=== PATIENT | female | born 1945 | race Caucasian/White ===

== ENCOUNTER 2016-07-15 14:00 | Emergency (ER) | payer OTHER ==
[~2016-07-15] VITALS: Ht 177.8 cm; Wt 131.8 kg
[~2016-07-15 14:00] MED LIST: ADVAIR 250/501 DISK; ADVAIR 250/501 DISK IH; ADVAIR 500/501 DISK IH; ADVAIR HFA120 INHALA IH; ALAVERT10 MG PO; ALBUTEROL SULF8.5 GM IH; ASPIR-LOW81 MG PO; ASPIRIN325 MG; ASPIRIN325 MG PO; Aspirin E.C. PO; CEFTIN500 MG PO; CLEOCIN300 MG PO; COUGH DROPS1 EACH MM; Claritin,Alavart PO; DILAUDID2 MG PO; DOCUSATE SODIU100 MG PO; DUONEB 2.5-0.5 M3 ML IH; ECOTRIN325 MG PO; ERYTHROMYC1 APPLICAT LEFT EYE; FUROSEMIDE40 MG PO; GABAPENTIN100 MG PO; Glucophage PO; HYDROCODON-ACE1 EAC7 PO; KEFLEX500 MG PO; KENALOG,ARISTOC80 G1 TP; KETOCONAZOLE60 GM TP; LANTUS 10100 UNITS/ SC; LANTUS 3 M100 UNITS1 SC; LASIX20 MG PO; LEVEMIR FL100 UNIT/1 SC; LEVEMIR100 UNIT/2 SC; LISINOPRIL5 MG PO; LITE COAT ASPI325 M1 PO; LOPRESSOR25 MG PO; LOSARTAN POTASS25 MG PO; LOVENOX40 MG/0.4 SC; Levaquin PO; Lopressor PO; METFORMIN HCL1000 M1 PO; METFORMIN HCL500 MG PO; METOLAZONE5 MG PO; METOPROLOL TART25 MG PO; MYRBETRIQ25 MG PO; NEURONTIN100 MG PO; NICODERM CQ1 EAC1 TD; NORCO 7.5/321 TABLET PO; NOVOLOG 10100 UNITS/; NOVOLOG 10100 UNITS/ SC; NOVOLOG PE100 UNITS/ SC; NovoLOG, HumaLOG SC; PERCOCET 5/31 TABLET PO; POTASSIUM CHLO20 ME1 PO; PRAVACHOL10 MG PO; PRAVACHOL20 MG PO; PRAVACHOL40 MG PO; PRAVASTATIN SOD40 MG PO; PREDNISONE10 MG PO; PREDNISONE20 MG PO; PROAIR HFA8.5 GM IH; Pravachol PO; ROXICODONE5 MG PO; SPIRIVA1 INHALATI IH; SPIRONOLACTONE25 MG PO; SYMBICORT60 INHALAT IH; TOPROL XL6.25 MG PO; ULTRAM50 MG PO; XANAX; XANAX0.25 MG PO; Xanax PO; ZITHROMAX250 MG PO; ZOFRAN4 MG PO; Zestril,Prinivil PO; predniSONE PO
[2016-07-15 15:19] LABS: HEMATOCRIT 40.1 % (36.0-46.0); MCH 27.9 PG (29.0-34.0); MCHC 32.4 G/DL (30.0-36.0); MCV 86.1 FL (83-99); PLATELET COUNT 264 K/uL (156-360); RBC DIS.WIDTH-SD 43.3 % (39-53); RED BLOOD COUNT 4.66 M/uL (3.80-5.20); WHITE BLOOD COUNT 9.6 K/uL (4.1-10.2)
[2016-07-15 15:36] LABS: CHLORIDE 94 mEq/L (99-109); SODIUM 137 mEq/L (136-147)
[2016-07-15 15:38] LABS: GLUCOSE 131 mg/dL (70-99)
[2016-07-15 15:39] LABS: ANION GAP 15 MEQ/L (2-14)
[2016-07-15 15:42] LABS: GFR ESTIMATE (CALCULATED) 59 mL/min/
[2016-07-15 15:43] LABS: UREA NITROGEN (BUN) 22 mg/dL (9-23)
[2016-07-15 16:36] LABS: D-DIMER ELISA 0.46 mg/L FEU (< 0.57)
[2016-07-15] MEDS ORDERED: DUONEB 2.5-0.5 M3 ML AEROSOL (17:06)
[2016-07-15] MEDS ORDERED: PREDNISONE20 MG PO (17:06)
[2016-07-15] MEDS ORDERED: K-DUR20 MEQ PO (17:12)
[2016-07-15 17:45] VITALS: BP 120/59
== END 2016-07-15 18:09 | disposition home or self-care (01) ==
LOC: EME 14:00 → RME 14:00
DX: J44.1 Chronic obstructive pulmonary disease with (acute) exacerbation (principal); E87.6 Hypokalemia; F17.200 Nicotine dependence, unspecified, uncomplicated; E11.9 Type 2 diabetes mellitus without complications; E78.5 Hyperlipidemia, unspecified; I25.2 Old myocardial infarction; Z95.1 Presence of aortocoronary bypass graft; Z88.2 Allergy status to sulfonamides
CPT/HCPCS: 71020; 80048; 85027; 85379; 93005; 94640; 99281; 99284

== ENCOUNTER 2016-10-10 04:35 | Inpatient (IN) | payer OTHER ==
[~2016-10-10] VITALS: Ht 177.8 cm; Wt 142.5 kg
[~2016-10-10 04:35] MED LIST changes: +DUONEB 2.5-0.5 M3 ML AEROSOL; +K-DUR20 MEQ PO
[2016-10-10 05:15] LABS: HEMATOCRIT 36.8 % (36.0-46.0); MCH 26.7 PG (29.0-34.0); MCHC 31.8 G/DL (30.0-36.0); MCV 83.8 FL (83-99); MEAN PLAT.VOLUME 9.2 uM^3 (9.5-12.4); PLATELET COUNT 275 K/uL (156-360); RBC DIS.WIDTH-CV 15.1 % (11.8-14.6); RBC DIS.WIDTH-SD 45.9 % (39-53); RED BLOOD COUNT 4.39 M/uL (3.80-5.20); WHITE BLOOD COUNT 7.8 K/uL (4.1-10.2)
[2016-10-10 05:33] LABS: CHLORIDE 103 mEq/L (99-109); POTASSIUM 4.5 mEq/L (3.7-5.4); SODIUM 140 mEq/L (136-147)
[2016-10-10 05:34] LABS: GLUCOSE 92 mg/dL (70-99)
[2016-10-10 05:36] LABS: ANION GAP 8 MEQ/L (2-14)
[2016-10-10 05:38] LABS: GFR ESTIMATE (CALCULATED) > 59 mL/min/
[2016-10-10 05:39] LABS: UREA NITROGEN (BUN) 22 mg/dL (9-23)
[2016-10-10 05:52] LABS: TROP-I INTERPRETATION NEGATIVE; TROPONIN-I 0.03 ng/mL (0.0-0.30)
[2016-10-10] MEDS ORDERED: LOSARTAN POTASS25 MG PO (07:58)
[2016-10-10] MEDS ORDERED: METOLAZONE5 MG PO (07:59)
[2016-10-10] MEDS ORDERED: TRESIBA FL100 UNIT/1 SC (08:01)
[2016-10-10 08:18] LABS: POINT-OF-CARE METER ID UU13113702
[2016-10-10 09:38] VITALS: BP 116/59
[2016-10-10 11:59] VITALS: BP 131/65
[2016-10-10 12:39] LABS: POINT-OF-CARE METER ID UU14162513
[2016-10-10 13:28] LABS: METH RESISTANT S AUREUS PCR POSITIVE (NEGATIVE)
[2016-10-10 13:35] LABS: PROBE CHECK PASS
[2016-10-10 16:54] VITALS: BP 132/75
[2016-10-10 20:00] VITALS: BP 118/57
[2016-10-10 23:57] VITALS: BP 125/60
[2016-10-11] VITALS (7 sets, daily range): BP systolic 120–141; BP diastolic 58–84
[2016-10-11 06:19] LABS: HEMATOCRIT 35.2 % (36.0-46.0); MCH 26.5 PG (29.0-34.0); MCHC 32.1 G/DL (30.0-36.0); MCV 82.4 FL (83-99); MEAN PLAT.VOLUME 9.6 uM^3 (9.5-12.4); PLATELET COUNT 262 K/uL (156-360); RBC DIS.WIDTH-CV 15.4 % (11.8-14.6); RBC DIS.WIDTH-SD 46.2 % (39-53); RED BLOOD COUNT 4.27 M/uL (3.80-5.20)
[2016-10-11 06:46] LABS: ANION GAP 10 MEQ/L (2-14); CHLORIDE 96 MEQ/L (99-109); GFR ESTIMATE (CALCULATED) > 59 mL/min/; GLUCOSE 223 mg/dL (70-99); POTASSIUM 3.2 MEQ/L (3.7-5.4); SAMPLE HEMOLYSIS CHECK 0; SAMPLE ICTERIC CHECK 0; SAMPLE LIPEMIA CHECK 0; SODIUM 135 MEQ/L (136-147); UREA NITROGEN (BUN) 22 mg/dL (9-23)
[2016-10-11 08:53] LABS: POINT-OF-CARE METER ID UU14162513
[2016-10-11 13:08] LABS: MAGNESIUM 1.8 mg/dl (1.3-2.7)
[2016-10-11 17:16] LABS: POINT-OF-CARE METER ID UU13113831
[2016-10-11 21:45] LABS: POINT-OF-CARE METER ID UU13113831
[2016-10-12 04:20] VITALS: BP 101/58
[2016-10-12 07:37] LABS: ANION GAP 7 MEQ/L (2-14); CHLORIDE 98 MEQ/L (99-109); GFR ESTIMATE (CALCULATED) 59 mL/min/; GLUCOSE 144 mg/dL (70-99); SAMPLE HEMOLYSIS CHECK 0; SAMPLE ICTERIC CHECK 0; SAMPLE LIPEMIA CHECK 0; SODIUM 136 MEQ/L (136-147); UREA NITROGEN (BUN) 29 mg/dL (9-23)
[2016-10-12 07:41] LABS: POTASSIUM 4.2 MEQ/L (3.7-5.4)
[2016-10-12 08:31] LABS: POINT-OF-CARE METER ID UU14162513
[2016-10-12 09:13] VITALS: BP 110/53
[2016-10-12 11:34] VITALS: BP 132/61
[2016-10-12 12:55] LABS: POINT-OF-CARE METER ID UU13113700
[2016-10-12 17:30] VITALS: BP 134/60
[2016-10-12 17:55] LABS: POINT-OF-CARE METER ID UU14162508
[2016-10-12 20:57] VITALS: BP 111/56
[2016-10-12 21:18] LABS: POINT-OF-CARE METER ID UU14162508
[2016-10-13] VITALS (7 sets, daily range): BP systolic 128–167; BP diastolic 69–82
[2016-10-13 06:23] LABS: POINT-OF-CARE METER ID UU14162508
[2016-10-13 07:05] LABS: EOSINOPHIL (%) 0.1 % (0-5); IMMATURE GRANULOCYTE (%) 0.6 % (0.0-0.7); IMMATURE GRANULOCYTE COUNT 0.1 K/uL; INSTRUMENT ABS NEUTROPHIL CT 6.8 K/uL; LYMPHOCYTE COUNT 1.1 K/uL (1.0-2.8); MCH 26.7 PG (29.0-34.0); MCHC 31.5 G/DL (30.0-36.0); MCV 84.6 FL (83-99); MEAN PLAT.VOLUME 9.3 uM^3 (9.5-12.4); MONOCYTE (%) 10.1 % (3-12); MONOCYTE COUNT 0.9 K/uL (0-0.8); NEUTROPHIL (%) 76.5 % (45-76); NEUTROPHIL COUNT 6.8 K/uL (1.8-6.4); PLATELET COUNT 282 K/uL (156-360); RBC DIS.WIDTH-CV 15.6 % (11.8-14.6); RBC DIS.WIDTH-SD 47.4 % (39-53); RED BLOOD COUNT 4.61 M/uL (3.80-5.20); WHITE BLOOD COUNT 8.9 K/uL (4.1-10.2)
[2016-10-13 07:34] LABS: ALKALINE PHOSPHATASE 50 IU/L (3-129); ANION GAP 9 MEQ/L (2-14); CHLORIDE 97 MEQ/L (99-109); GFR ESTIMATE (CALCULATED) 59 mL/min/; POTASSIUM 3.5 MEQ/L (3.7-5.4); SAMPLE HEMOLYSIS CHECK 0; SAMPLE ICTERIC CHECK 0; SAMPLE LIPEMIA CHECK 0; SODIUM 138 MEQ/L (136-147); TOTAL BILIRUBIN 0.6 MG/DL (0.0-1.0); UREA NITROGEN (BUN) 27 mg/dL (9-23)
[2016-10-13 07:35] LABS: GLUCOSE 79 mg/dL (70-99)
[2016-10-13 09:42] LABS: TROP-I INTERPRETATION POSITIVE; TROPONIN-I 1.28 ng/mL (0.0-0.30)
[2016-10-13 11:35] LABS: POINT-OF-CARE METER ID UU14162508
[2016-10-14 03:29] VITALS: BP 125/67
[2016-10-14 08:00] VITALS: BP 152/69
[2016-10-14 09:50] LABS: EOSINOPHIL (%) 0.1 % (0-5); HEMATOCRIT 40.1 % (36.0-46.0); IMMATURE GRANULOCYTE (%) 0.6 % (0.0-0.7); IMMATURE GRANULOCYTE COUNT 0.1 K/uL; INSTRUMENT ABS NEUTROPHIL CT 7.4 K/uL; LYMPHOCYTE COUNT 1.3 K/uL (1.0-2.8); MCH 26.4 PG (29.0-34.0); MCHC 31.2 G/DL (30.0-36.0); MCV 84.6 FL (83-99); MEAN PLAT.VOLUME 9.5 uM^3 (9.5-12.4); MONOCYTE (%) 12.1 % (3-12); MONOCYTE COUNT 1.2 K/uL (0-0.8); NEUTROPHIL (%) 74.5 % (45-76); NEUTROPHIL COUNT 7.4 K/uL (1.8-6.4); PLATELET COUNT 256 K/uL (156-360); RBC DIS.WIDTH-CV 15.5 % (11.8-14.6); RBC DIS.WIDTH-SD 47.7 % (39-53); RED BLOOD COUNT 4.74 M/uL (3.80-5.20)
[2016-10-14 10:16] LABS: TROP-I INTERPRETATION POSITIVE; TROPONIN-I 0.84 ng/mL (0.0-0.30)
[2016-10-14 10:18] LABS: ALKALINE PHOSPHATASE 56 IU/L (3-129); ANION GAP 9 MEQ/L (2-14); CHLORIDE 95 MEQ/L (99-109); GFR ESTIMATE (CALCULATED) > 59 mL/min/; POTASSIUM 3.8 MEQ/L (3.7-5.4); SAMPLE HEMOLYSIS CHECK 0; SAMPLE ICTERIC CHECK 0; SAMPLE LIPEMIA CHECK 0; SODIUM 138 MEQ/L (136-147); TOTAL BILIRUBIN 0.7 MG/DL (0.0-1.0); UREA NITROGEN (BUN) 24 mg/dL (9-23)
[2016-10-14 10:20] LABS: GLUCOSE 197 mg/dL (70-99)
[2016-10-14 11:45] LABS: POINT-OF-CARE METER ID UU14162508
[2016-10-14 12:00] VITALS: BP 147/89
[2016-10-14 16:00] VITALS: BP 123/67
[2016-10-15 00:08] VITALS: BP 149/70
[2016-10-15 04:05] VITALS: BP 157/78
[2016-10-15 07:05] LABS: EOSINOPHIL (%) 0.2 % (0-5); HEMATOCRIT 40.2 % (36.0-46.0); IMMATURE GRANULOCYTE (%) 0.8 % (0.0-0.7); IMMATURE GRANULOCYTE COUNT 0.1 K/uL; INSTRUMENT ABS NEUTROPHIL CT 7.5 K/uL; LYMPHOCYTE COUNT 1.5 K/uL (1.0-2.8); MCH 26.5 PG (29.0-34.0); MCHC 31.6 G/DL (30.0-36.0); MCV 83.8 FL (83-99); MEAN PLAT.VOLUME 9.7 uM^3 (9.5-12.4); MONOCYTE COUNT 1.1 K/uL (0-0.8); NEUTROPHIL COUNT 7.5 K/uL (1.8-6.4); PLATELET COUNT 261 K/uL (156-360); RBC DIS.WIDTH-CV 15.3 % (11.8-14.6); RBC DIS.WIDTH-SD 46.8 % (39-53); WHITE BLOOD COUNT 10.2 K/uL (4.1-10.2)
[2016-10-15 08:00] VITALS: BP 115/63
[2016-10-15 08:18] LABS: ALKALINE PHOSPHATASE 55 IU/L (3-129); ANION GAP 10 MEQ/L (2-14); CHLORIDE 96 MEQ/L (99-109); GFR ESTIMATE (CALCULATED) > 59 mL/min/; POTASSIUM 4.2 MEQ/L (3.7-5.4); SAMPLE HEMOLYSIS CHECK 0; SAMPLE ICTERIC CHECK 0; SAMPLE LIPEMIA CHECK 0; SODIUM 140 MEQ/L (136-147); TOTAL BILIRUBIN 0.6 MG/DL (0.0-1.0); UREA NITROGEN (BUN) 25 mg/dL (9-23)
[2016-10-15 08:19] LABS: GLUCOSE 83 mg/dL (70-99)
[2016-10-15 08:57] LABS: POINT-OF-CARE METER ID UU14162508
[2016-10-15 12:00] VITALS: BP 139/83
[2016-10-15 12:17] LABS: POINT-OF-CARE METER ID UU14162508
[2016-10-15 16:00] VITALS: BP 113/65
[2016-10-15 16:17] LABS: POINT-OF-CARE METER ID UU14162508
[2016-10-15 22:33] VITALS: BP 120/60
[2016-10-15 22:53] LABS: POINT-OF-CARE METER ID UU14162508
[2016-10-16 03:55] VITALS: BP 122/67
[2016-10-16 05:50] LABS: EOSINOPHIL (%) 0.1 % (0-5); HEMATOCRIT 39.2 % (36.0-46.0); IMMATURE GRANULOCYTE (%) 0.9 % (0.0-0.7); IMMATURE GRANULOCYTE COUNT 0.1 K/uL; INSTRUMENT ABS NEUTROPHIL CT 8.1 K/uL; LYMPHOCYTE COUNT 1.7 K/uL (1.0-2.8); MCH 26.1 PG (29.0-34.0); MCHC 31.1 G/DL (30.0-36.0); MCV 83.9 FL (83-99); MONOCYTE (%) 8.5 % (3-12); MONOCYTE COUNT 0.9 K/uL (0-0.8); NEUTROPHIL (%) 74.6 % (45-76); NEUTROPHIL COUNT 8.1 K/uL (1.8-6.4); PLATELET COUNT 267 K/uL (156-360); RBC DIS.WIDTH-CV 15.6 % (11.8-14.6); RBC DIS.WIDTH-SD 47.7 % (39-53); RED BLOOD COUNT 4.67 M/uL (3.80-5.20); WHITE BLOOD COUNT 10.9 K/uL (4.1-10.2)
[2016-10-16 06:11] LABS: ALKALINE PHOSPHATASE 55 IU/L (3-129); ANION GAP 10 MEQ/L (2-14); CHLORIDE 96 MEQ/L (99-109); GFR ESTIMATE (CALCULATED) > 59 mL/min/; GLUCOSE 97 mg/dL (70-99); POTASSIUM 3.9 MEQ/L (3.7-5.4); SAMPLE HEMOLYSIS CHECK 0; SAMPLE ICTERIC CHECK 0; SAMPLE LIPEMIA CHECK 0; SODIUM 137 MEQ/L (136-147); TOTAL BILIRUBIN 0.6 MG/DL (0.0-1.0); UREA NITROGEN (BUN) 26 mg/dL (9-23)
[2016-10-16 08:10] VITALS: BP 118/72
[2016-10-16 11:30] VITALS: BP 147/81
[2016-10-16 16:25] LABS: POINT-OF-CARE METER ID UU13113696
[2016-10-16 21:37] VITALS: BP 133/60
[2016-10-16 22:01] LABS: POINT-OF-CARE METER ID UU14174216
[2016-10-16 23:16] VITALS: BP 124/67
[2016-10-17 04:30] VITALS: BP 125/66
[2016-10-17 07:53] LABS: POINT-OF-CARE METER ID UU14174216
[2016-10-17 09:12] VITALS: BP 128/73
[2016-10-17 11:35] VITALS: BP 122/69
[2016-10-17 11:42] LABS: POINT-OF-CARE METER ID UU14174216
[2016-10-17 16:37] VITALS: BP 125/70
[2016-10-17 16:51] LABS: POINT-OF-CARE METER ID UU14174216
[2016-10-17 19:20] VITALS: BP 117/58
[2016-10-17 23:00] VITALS: BP 118/57
[2016-10-18 03:30] VITALS: BP 116/70
[2016-10-18 07:35] VITALS: BP 101/50
[2016-10-18] MEDS ORDERED: K-DUR20 MEQ PO (07:36)
[2016-10-18] MEDS ORDERED: BRILINTA90 MG PO (07:36)
[2016-10-18] MEDS ORDERED: ASPIR-LOW81 MG PO (07:36)
[2016-10-18] MEDS ORDERED: SPIRIVA RESPIMAT4 GM IH (07:36)
[2016-10-18] MEDS ORDERED: PREDNISONE10 MG PO (07:36)
[2016-10-18 11:28] VITALS: BP 116/56
== END 2016-10-18 12:17 | disposition home health service (06) | DRG 166 ==
LOC: EME 04:35 → EDOF 07:37 → 5WEST 07:37 → 2EAST 10-11 10:39 → 4EAST 10-11 10:39 → 5EAST 10-11 10:39 → 5WEST 10-11 10:39 → 5EAST 10-11 10:39 → 5WEST 10-12 06:31 → 2EAST 10-12 17:22 → 4EAST 10-16 21:36
PROVIDERS: Emergency Medicine; Hospitalist; Internal Medicine; Internal Medicine Cardiovascular Disease; Nurse Practitioner Adult Health; Pediatrics
DX: J44.1 Chronic obstructive pulmonary disease with (acute) exacerbation (principal); J44.0 Chronic obstructive pulmonary disease with (acute) lower respiratory infection; I21.4 Non-ST elevation (NSTEMI) myocardial infarction; L03.115 Cellulitis of right lower limb; I11.0 Hypertensive heart disease with heart failure; I50.20 Unspecified systolic (congestive) heart failure; E11.622 Type 2 diabetes mellitus with other skin ulcer; Z68.42 Body mass index [BMI] 45.0-49.9, adult; I25.2 Old myocardial infarction; E66.9 Obesity, unspecified; I25.10 Atherosclerotic heart disease of native coronary artery without angina pectoris; J20.9 Acute bronchitis, unspecified; L97.909 Non-pressure chronic ulcer of unspecified part of unspecified lower leg with unspecified severity; J45.909 Unspecified asthma, uncomplicated; E78.5 Hyperlipidemia, unspecified; I87.8 Other specified disorders of veins; L30.4 Erythema intertrigo; S40.211A Abrasion of right shoulder, initial encounter; X58.XXXA Exposure to other specified factors, initial encounter; Z95.1 Presence of aortocoronary bypass graft; L03.116 Cellulitis of left lower limb; F41.9 Anxiety disorder, unspecified; F17.210 Nicotine dependence, cigarettes, uncomplicated; R09.02 Hypoxemia; E87.6 Hypokalemia; I25.810 Atherosclerosis of coronary artery bypass graft(s) without angina pectoris
CPT/HCPCS: 71010; 80048; 80053; 82948; 83735; 84100; 84484; 85025; 85027; 85347; 85730; 87081; 87641; 93005; 94640; 94640 76; 94644; 94760; 94799; 99202; 99281; 99284; C1725; C1769; C1874; C1887; G0378; J0456; J1644; J1815; J2250; J2930; J3010; J7030; J7512

== ENCOUNTER 2016-12-27 17:34 | Inpatient (IN) | payer OTHER ==
[~2016-12-27] VITALS: Ht 177.8 cm; Wt 149.0 kg
[~2016-12-27 17:34] MED LIST changes: +BRILINTA90 MG PO; +SPIRIVA RESPIMAT4 GM IH; +TRESIBA FL100 UNIT/1 SC
[2016-12-27 18:34] LABS: ADD MIUA? YES; BILIRUBIN NEGATIVE; BLOOD NEGATIVE; COLOR YELLOW ((YELLOW)); GLUCOSE (STRIP) NEGATIVE; KETONES NEGATIVE; LEUKOCYTES SMALL; NITRITE NEGATIVE; PROTEIN (STRIP) NEGATIVE; SPECIFIC GRAVITY 1.013 (1.000-1.030); UROBILINOGEN 0.2 MG/DL (0.2-1.0)
[2016-12-27 18:42] LABS: BACTERIA RARE /HPF; EPITHELIAL CELLS 4+ /HPF; HYALINE CASTS 0-5 /LPF; MUCUS TRACE /LPF; RED BLOOD CELLS 0-5 /HPF (0-5); UCUL ADDED? NO; WHITE BLOOD CELLS 0-5 /HPF (0-5)
[2016-12-27 19:06] LABS: BASOPHIL COUNT 0.1 K/uL (0-0.1); EOSINOPHIL (%) 0 % (0-5); IMMATURE GRANULOCYTE (%) 1.2 % (0.0-0.7); IMMATURE GRANULOCYTE COUNT 0.4 K/uL; INSTRUMENT ABS NEUTROPHIL CT 30.8 K/uL; LYMPHOCYTE COUNT 0.6 K/uL (1.0-2.8); MEAN PLAT.VOLUME 9.3 uM^3 (9.5-12.4); MONOCYTE (%) 4.6 % (3-12); MONOCYTE COUNT 1.5 K/uL (0-0.8); NEUTROPHIL (%) 92.1 % (45-76); NEUTROPHIL COUNT 30.8 K/uL (1.8-6.4); PLATELET COUNT 308 K/uL (156-360)
[2016-12-27 19:17] LABS: CHLORIDE 101 mEq/L (99-109); SODIUM 139 mEq/L (136-147)
[2016-12-27 19:19] LABS: GLUCOSE 156 mg/dL (70-99)
[2016-12-27 19:20] LABS: ANION GAP 13 MEQ/L (2-14)
[2016-12-27 19:21] LABS: TOTAL BILIRUBIN 0.8 mg/dL (0.0-1.0)
[2016-12-27 19:22] LABS: ALKALINE PHOSPHATASE 67 IU/L (3-129)
[2016-12-27 19:23] LABS: GFR ESTIMATE (CALCULATED) 47 mL/min/
[2016-12-27 19:24] LABS: UREA NITROGEN (BUN) 18 mg/dL (9-23)
[2016-12-27 19:32] LABS: TROP-I INTERPRETATION POSITIVE
[2016-12-27 19:33] LABS: HEMATOCRIT 35.2 % (36.0-46.0); MCH 27.3 PG (29.0-34.0); MCHC 32.4 G/DL (30.0-36.0); MCV 84.2 FL (83-99); RBC DIS.WIDTH-CV 15.3 % (11.8-14.6); RBC DIS.WIDTH-SD 47.1 % (39-53); RED BLOOD COUNT 4.18 M/uL (3.80-5.20)
[2016-12-27 19:52] LABS: TROPONIN-I 1.26 ng/mL (0.0-0.30)
[2016-12-27] MEDS ORDERED: DUONEB 2.5-0.5 M3 ML AEROSOL (22:56)
[2016-12-27] MEDS ORDERED: SPIRIVA RESPIMAT4 GM IH (22:57)
[2016-12-27] MEDS ORDERED: K-DUR20 MEQ PO (23:00)
[2016-12-27] MEDS ORDERED: TRESIBA FL200 UNIT/1 SC (23:05)
[2016-12-27] MEDS ORDERED: ELIQUIS5 MG PO (23:06)
[2016-12-28 01:15] VITALS: BP 118/57
[2016-12-28 01:19] LABS: INTER. NORMALIZED RATIO 1.4; PROTHROMBIN TIME 14.6 (9.2-11.2); PTT 34.3 (25-32)
[2016-12-28 01:29] LABS: TROP-I INTERPRETATION POSITIVE
[2016-12-28 02:04] LABS: METH RESISTANT S AUREUS PCR POSITIVE (NEGATIVE); PROBE CHECK PASS
[2016-12-28 04:59] VITALS: BP 132/54
[2016-12-28 07:54] LABS: POINT-OF-CARE METER ID UU14174216
[2016-12-28 08:00] VITALS: BP 126/59
[2016-12-28 09:11] LABS: BASOPHIL COUNT 0.1 K/uL (0-0.1); EOSINOPHIL (%) 0 % (0-5); IMMATURE GRANULOCYTE COUNT 0.3 K/uL; INSTRUMENT ABS NEUTROPHIL CT 28.7 K/uL; LYMPHOCYTE COUNT 0.7 K/uL (1.0-2.8); MEAN PLAT.VOLUME 9.3 uM^3 (9.5-12.4); MONOCYTE (%) 2.1 % (3-12); MONOCYTE COUNT 0.7 K/uL (0-0.8); NEUTROPHIL (%) 94.3 % (45-76); NEUTROPHIL COUNT 28.7 K/uL (1.8-6.4); PLATELET COUNT 301 K/uL (156-360)
[2016-12-28 09:15] LABS: ANION GAP 11 MEQ/L (2-14); CHLORIDE 100 MEQ/L (99-109); GFR ESTIMATE (CALCULATED) 52 mL/min/; GLUCOSE 167 mg/dL (70-99); POTASSIUM 3.1 MEQ/L (3.7-5.4); SAMPLE HEMOLYSIS CHECK 0; SAMPLE ICTERIC CHECK 0; SAMPLE LIPEMIA CHECK 0; SODIUM 134 MEQ/L (136-147); UREA NITROGEN (BUN) 21 mg/dL (9-23)
[2016-12-28 09:16] LABS: HEMATOCRIT 35.2 % (36.0-46.0); MCH 27.1 PG (29.0-34.0); MCHC 31.5 G/DL (30.0-36.0); MCV 85.9 FL (83-99); RBC DIS.WIDTH-CV 15.5 % (11.8-14.6); RBC DIS.WIDTH-SD 49.1 % (39-53); WHITE BLOOD COUNT 30.5 K/uL (4.1-10.2)
[2016-12-28 09:24] LABS: TROP-I INTERPRETATION POSITIVE; TROPONIN-I 3.08 ng/mL (0.0-0.30)
[2016-12-28 11:33] LABS: POINT-OF-CARE METER ID UU14174216
[2016-12-28 12:03] VITALS: BP 133/63
[2016-12-28 16:15] LABS: POINT-OF-CARE METER ID UU14174216
[2016-12-28 16:42] VITALS: BP 109/68
[2016-12-28 17:22] LABS: BASE EXCESS 0.9 mEq/L (-3 to +3); BICARBONATE 23.4 mEq/L (22-26); COMMENTS - BLOOD GASES A+C+; DEVICE NC; METHEMOGLOBIN 1.6 % (0-1.5); O2 FLOW 2 L/MIN; PCO2 30 mm Hg (35-45); PO2 73 mm Hg (80-100); SITE RR
[2016-12-28 19:59] VITALS: BP 129/67
[2016-12-29] VITALS (7 sets, daily range): BP systolic 98–135; BP diastolic 56–66
[2016-12-29 07:57] LABS: POINT-OF-CARE METER ID UU14174216
[2016-12-30 03:22] VITALS: BP 110/49
[2016-12-30 03:34] VITALS: BP 100/49
[2016-12-30 04:20] LABS: BASOPHIL COUNT 0.1 K/uL (0-0.1); EOSINOPHIL (%) 1.3 % (0-5); EOSINOPHIL COUNT 0.2 K/uL (0-0.3); HEMATOCRIT 29.5 % (36.0-46.0); IMMATURE GRANULOCYTE (%) 0.8 % (0.0-0.7); IMMATURE GRANULOCYTE COUNT 0.1 K/uL; INSTRUMENT ABS NEUTROPHIL CT 10.2 K/uL; LYMPHOCYTE COUNT 0.9 K/uL (1.0-2.8); MCH 26.6 PG (29.0-34.0); MCHC 31.5 G/DL (30.0-36.0); MCV 84.5 FL (83-99); MEAN PLAT.VOLUME 9.9 uM^3 (9.5-12.4); MONOCYTE (%) 6.1 % (3-12); MONOCYTE COUNT 0.7 K/uL (0-0.8); NEUTROPHIL (%) 83.9 % (45-76); NEUTROPHIL COUNT 10.2 K/uL (1.8-6.4); PLATELET COUNT 230 K/uL (156-360); RBC DIS.WIDTH-CV 15.6 % (11.8-14.6); RBC DIS.WIDTH-SD 48.1 % (39-53); RED BLOOD COUNT 3.49 M/uL (3.80-5.20); WHITE BLOOD COUNT 12.1 K/uL (4.1-10.2)
[2016-12-30 04:31] LABS: CHLORIDE 103 mEq/L (99-109); SODIUM 137 mEq/L (136-147)
[2016-12-30 04:34] LABS: GLUCOSE 142 mg/dL (70-99)
[2016-12-30 04:35] LABS: ANION GAP 9 MEQ/L (2-14)
[2016-12-30 04:36] LABS: TOTAL BILIRUBIN 0.7 mg/dL (0.0-1.0)
[2016-12-30 04:37] LABS: ALKALINE PHOSPHATASE 71 IU/L (3-129); GFR ESTIMATE (CALCULATED) 58 mL/min/
[2016-12-30 04:38] LABS: UREA NITROGEN (BUN) 19 mg/dL (9-23)
[2016-12-30 08:10] LABS: POINT-OF-CARE METER ID UU14174216
[2016-12-30 08:30] VITALS: BP 131/63
[2016-12-30 11:39] LABS: POINT-OF-CARE METER ID UU13113781
[2016-12-30 11:41] VITALS: BP 114/56
[2016-12-30 16:41] LABS: POINT-OF-CARE METER ID UU13113781
[2016-12-30 17:30] VITALS: BP 133/55
[2016-12-30 20:55] LABS: POINT-OF-CARE METER ID UU14174216
[2016-12-30 21:46] VITALS: BP 128/70
[2016-12-31 00:39] VITALS: BP 126/65
[2016-12-31 04:22] VITALS: BP 117/76
[2016-12-31 05:27] LABS: BASOPHIL COUNT 0.1 K/uL (0-0.1); EOSINOPHIL (%) 1.3 % (0-5); EOSINOPHIL COUNT 0.2 K/uL (0-0.3); IMMATURE GRANULOCYTE (%) 0.9 % (0.0-0.7); IMMATURE GRANULOCYTE COUNT 0.1 K/uL; INSTRUMENT ABS NEUTROPHIL CT 11.8 K/uL; LYMPHOCYTE COUNT 0.9 K/uL (1.0-2.8); MCH 27.1 PG (29.0-34.0); MCHC 32.7 G/DL (30.0-36.0); MCV 83.1 FL (83-99); MEAN PLAT.VOLUME 9.9 uM^3 (9.5-12.4); NEUTROPHIL (%) 84.1 % (45-76); NEUTROPHIL COUNT 11.8 K/uL (1.8-6.4); PLATELET COUNT 245 K/uL (156-360); RBC DIS.WIDTH-CV 15.4 % (11.8-14.6); RBC DIS.WIDTH-SD 46.7 % (39-53); RED BLOOD COUNT 3.61 M/uL (3.80-5.20)
[2016-12-31 05:57] LABS: ALKALINE PHOSPHATASE 141 IU/L (3-129); ANION GAP 10 MEQ/L (2-14); CHLORIDE 101 MEQ/L (99-109); GFR ESTIMATE (CALCULATED) > 59 mL/min/; GLUCOSE 129 mg/dL (70-99); POTASSIUM 3.2 MEQ/L (3.7-5.4); SAMPLE HEMOLYSIS CHECK 0; SAMPLE ICTERIC CHECK 0; SAMPLE LIPEMIA CHECK 0; SODIUM 136 MEQ/L (136-147); TOTAL BILIRUBIN 0.9 MG/DL (0.0-1.0); UREA NITROGEN (BUN) 16 mg/dL (9-23)
[2016-12-31 08:37] VITALS: BP 140/63
[2016-12-31 12:29] LABS: GFR ESTIMATE (CALCULATED) > 59 mL/min/; VANCOMYCIN, TROUGH 16.3 MCG/ML (10-20)
[2016-12-31 16:36] VITALS: BP 130/60
[2016-12-31 19:34] VITALS: BP 131/65
[2016-12-31 23:03] VITALS: BP 117/59
[2017-01-01 04:30] VITALS: BP 149/64
[2017-01-01 07:01] LABS: ALKALINE PHOSPHATASE 137 IU/L (3-129); ANION GAP 10 MEQ/L (2-14); CHLORIDE 101 MEQ/L (99-109); GFR ESTIMATE (CALCULATED) > 59 mL/min/; GLUCOSE 128 mg/dL (70-99); POTASSIUM 3.5 MEQ/L (3.7-5.4); SAMPLE HEMOLYSIS CHECK 0; SAMPLE ICTERIC CHECK 0; SAMPLE LIPEMIA CHECK 0; SODIUM 137 MEQ/L (136-147); TOTAL BILIRUBIN 0.8 MG/DL (0.0-1.0); UREA NITROGEN (BUN) 12 mg/dL (9-23)
[2017-01-01 09:00] VITALS: BP 142/58
[2017-01-01 11:37] VITALS: BP 126/64
[2017-01-01 12:43] LABS: POINT-OF-CARE USER ID NUTSLF44
[2017-01-01 12:51] LABS: POINT-OF-CARE METER ID UU14174216
[2017-01-01 14:50] LABS: BASOPHIL COUNT 0.1 K/uL (0-0.1); EOSINOPHIL (%) 2.6 % (0-5); EOSINOPHIL COUNT 0.4 K/uL (0-0.3); HEMATOCRIT 31.8 % (36.0-46.0); IMMATURE GRANULOCYTE COUNT 0.3 K/uL; INSTRUMENT ABS NEUTROPHIL CT 11.9 K/uL; LYMPHOCYTE COUNT 1.5 K/uL (1.0-2.8); MCH 27.5 PG (29.0-34.0); MCHC 32.7 G/DL (30.0-36.0); MCV 84.1 FL (83-99); MEAN PLAT.VOLUME 9.8 uM^3 (9.5-12.4); MONOCYTE COUNT 1.1 K/uL (0-0.8); NEUTROPHIL (%) 78.6 % (45-76); NEUTROPHIL COUNT 11.9 K/uL (1.8-6.4); PLATELET COUNT 292 K/uL (156-360); RBC DIS.WIDTH-CV 15.4 % (11.8-14.6); RBC DIS.WIDTH-SD 46.9 % (39-53); RED BLOOD COUNT 3.78 M/uL (3.80-5.20); WHITE BLOOD COUNT 15.2 K/uL (4.1-10.2)
[2017-01-01 16:40] VITALS: BP 108/62
[2017-01-01 16:56] LABS: POINT-OF-CARE METER ID UU14174216
[2017-01-01 19:54] VITALS: BP 126/60
[2017-01-01 20:54] LABS: POINT-OF-CARE METER ID UU14174216
[2017-01-01 23:40] VITALS: BP 128/58
[2017-01-02 04:40] VITALS: BP 125/60
[2017-01-02 06:00] LABS: BASOPHIL COUNT 0.1 K/uL (0-0.1); EOSINOPHIL COUNT 0.6 K/uL (0-0.3); HEMATOCRIT 31.5 % (36.0-46.0); IMMATURE GRANULOCYTE COUNT 0.5 K/uL; INSTRUMENT ABS NEUTROPHIL CT 12.1 K/uL; LYMPHOCYTE COUNT 1.7 K/uL (1.0-2.8); MCH 27.8 PG (29.0-34.0); MCHC 32.7 G/DL (30.0-36.0); MCV 84.9 FL (83-99); MEAN PLAT.VOLUME 9.9 uM^3 (9.5-12.4); MONOCYTE (%) 6.2 % (3-12); NEUTROPHIL COUNT 12.1 K/uL (1.8-6.4); PLATELET COUNT 305 K/uL (156-360); RBC DIS.WIDTH-CV 15.5 % (11.8-14.6); RBC DIS.WIDTH-SD 47.8 % (39-53); RED BLOOD COUNT 3.71 M/uL (3.80-5.20); WHITE BLOOD COUNT 15.9 K/uL (4.1-10.2)
[2017-01-02 06:22] LABS: ANION GAP 9 MEQ/L (2-14); CHLORIDE 100 MEQ/L (99-109); GFR ESTIMATE (CALCULATED) > 59 mL/min/; GLUCOSE 165 mg/dL (70-99); POTASSIUM 3.6 MEQ/L (3.7-5.4); SAMPLE HEMOLYSIS CHECK 0; SAMPLE ICTERIC CHECK 0; SAMPLE LIPEMIA CHECK 0; SODIUM 140 MEQ/L (136-147); UREA NITROGEN (BUN) 12 mg/dL (9-23)
[2017-01-02 09:10] VITALS: BP 110/57
[2017-01-02 12:09] VITALS: BP 116/59
[2017-01-02 16:48] VITALS: BP 152/66
[2017-01-02 19:35] VITALS: BP 114/56
[2017-01-03] VITALS (8 sets, daily range): BP systolic 101–126; BP diastolic 53–66
[2017-01-03 06:03] LABS: BASOPHIL COUNT 0.1 K/uL (0-0.1); EOSINOPHIL COUNT 0.6 K/uL (0-0.3); HEMATOCRIT 29.7 % (36.0-46.0); IMMATURE GRANULOCYTE COUNT 0.7 K/uL; INSTRUMENT ABS NEUTROPHIL CT 10.7 K/uL; LYMPHOCYTE COUNT 1.6 K/uL (1.0-2.8); MCH 28.2 PG (29.0-34.0); MCV 85.3 FL (83-99); MONOCYTE (%) 5.6 % (3-12); MONOCYTE COUNT 0.8 K/uL (0-0.8); NEUTROPHIL COUNT 10.7 K/uL (1.8-6.4); PLATELET COUNT 305 K/uL (156-360); RBC DIS.WIDTH-CV 15.6 % (11.8-14.6); RBC DIS.WIDTH-SD 47.8 % (39-53); RED BLOOD COUNT 3.48 M/uL (3.80-5.20); WHITE BLOOD COUNT 14.5 K/uL (4.1-10.2)
[2017-01-03 06:29] LABS: ALKALINE PHOSPHATASE 114 IU/L (3-129); ANION GAP 11 MEQ/L (2-14); CHLORIDE 103 MEQ/L (99-109); GFR ESTIMATE (CALCULATED) > 59 mL/min/; GLUCOSE 142 mg/dL (70-99); POTASSIUM 3.9 MEQ/L (3.7-5.4); SAMPLE HEMOLYSIS CHECK 0; SAMPLE ICTERIC CHECK 0; SAMPLE LIPEMIA CHECK 0; SODIUM 141 MEQ/L (136-147); UREA NITROGEN (BUN) 11 mg/dL (9-23)
[2017-01-03 06:30] LABS: TOTAL BILIRUBIN 0.5 MG/DL (0.0-1.0)
[2017-01-03 22:35] LABS: POINT-OF-CARE METER ID UU14174216
[2017-01-04 03:11] VITALS: BP 112/57
[2017-01-04 07:38] VITALS: BP 110/56
[2017-01-04 12:34] VITALS: BP 136/63
[2017-01-04] MEDS ORDERED: KEFLEX500 MG PO (16:29)
[2017-01-04 16:44] LABS: POINT-OF-CARE METER ID UU14174216
== END 2017-01-04 18:21 | disposition home or self-care (01) | DRG 872 ==
LOC: EME 17:34 → EDOF 23:04 → 4EAST 23:04
PROVIDERS: Emergency Medicine; Hospitalist; Nurse Practitioner Adult Health; Pediatrics; Physician Assistant Medical
DX: A41.9 Sepsis, unspecified organism (principal); I95.9 Hypotension, unspecified; I42.0 Dilated cardiomyopathy; I11.0 Hypertensive heart disease with heart failure; I50.9 Heart failure, unspecified; I48.1 Persistent atrial fibrillation; L03.116 Cellulitis of left lower limb; R65.20 Severe sepsis without septic shock; R79.89 Other specified abnormal findings of blood chemistry; E11.9 Type 2 diabetes mellitus without complications; I10 Essential (primary) hypertension; B95.4 Other streptococcus as the cause of diseases classified elsewhere; E66.01 Morbid (severe) obesity due to excess calories; Z68.42 Body mass index [BMI] 45.0-49.9, adult; I87.2 Venous insufficiency (chronic) (peripheral); E78.5 Hyperlipidemia, unspecified; E87.6 Hypokalemia; F17.210 Nicotine dependence, cigarettes, uncomplicated; G47.00 Insomnia, unspecified; I25.10 Atherosclerotic heart disease of native coronary artery without angina pectoris; I25.5 Ischemic cardiomyopathy; J44.9 Chronic obstructive pulmonary disease, unspecified; N39.3 Stress incontinence (female) (male); Z86.14 Personal history of Methicillin resistant Staphylococcus aureus infection; Z95.1 Presence of aortocoronary bypass graft; J45.909 Unspecified asthma, uncomplicated
CPT/HCPCS: 36600; 70450; 71010; 80048; 80053; 80202; 81003; 82140; 82565; 82803; 82948; 83605; 84484; 85025; 85027; 85610; 85730; 87040; 87070; 87075; 87077; 87147; 87186; 87205; 87641; 93005; 93798; 94640; 94640 76; 94799; 99202; 99281; 99285; A6260; J0690; J0696; J1815; J2543; J3370; J7040; J7050

== ENCOUNTER 2017-03-03 00:29 | Emergency (ER) | payer OTHER ==
[~2017-03-03] VITALS: Ht 177.8 cm; Wt 140.9 kg
[~2017-03-03 00:29] MED LIST changes: +ELIQUIS5 MG PO; +TRESIBA FL200 UNIT/1 SC
[2017-03-03] MEDS ORDERED: ATARAX,VISTARIL25 MG PO (03:24)
[2017-03-03 03:35] VITALS: BP 122/60
== END 2017-03-03 03:57 | disposition home or self-care (01) ==
LOC: EME 00:29
DX: E11.622 Type 2 diabetes mellitus with other skin ulcer (principal); L97.921 Non-pressure chronic ulcer of unspecified part of left lower leg limited to breakdown of skin; L97.911 Non-pressure chronic ulcer of unspecified part of right lower leg limited to breakdown of skin; I87.8 Other specified disorders of veins; L29.9 Pruritus, unspecified; I11.0 Hypertensive heart disease with heart failure; I50.9 Heart failure, unspecified; J44.9 Chronic obstructive pulmonary disease, unspecified; E78.5 Hyperlipidemia, unspecified; I25.2 Old myocardial infarction; Z95.1 Presence of aortocoronary bypass graft; F17.200 Nicotine dependence, unspecified, uncomplicated
CPT/HCPCS: 99281; 99284; Q0177

== ENCOUNTER 2017-07-29 00:48 | Emergency (ER) | payer OTHER ==
[~2017-07-29] VITALS: Ht 177.8 cm; Wt 136.3 kg
[~2017-07-29 00:48] MED LIST changes: +ATARAX,VISTARIL25 MG PO
[2017-07-29 02:34] LABS: HEMATOCRIT 36.4 % (36.0-46.0); HEMOGLOBIN 11.5 G/DL (11.9-15.5); MCH 25.6 PG (29.0-34.0); MCHC 31.6 G/DL (30.0-36.0); MCV 81.1 FL (83-99); PLATELET COUNT 264 K/uL (156-360); RBC DIS.WIDTH-SD 49.9 % (39-53); RED BLOOD COUNT 4.49 M/uL (3.80-5.20); WHITE BLOOD COUNT 10.3 K/uL (4.1-10.2)
[2017-07-29 02:42] LABS: ALBUMIN 3.9 g/dL (3.2-4.8); CHLORIDE 100 mEq/L (99-109); SODIUM 137 mEq/L (136-147)
[2017-07-29 02:45] LABS: GLUCOSE 145 mg/dL (70-99)
[2017-07-29 02:47] LABS: TOTAL BILIRUBIN 0.6 mg/dL (0.0-1.0)
[2017-07-29 02:48] LABS: ALKALINE PHOSPHATASE 78 IU/L (3-129); CREATININE 1.1 mg/dL (0.6-1.3); GFR ESTIMATE (CALCULATED) 52 mL/min/
[2017-07-29 02:49] LABS: UREA NITROGEN (BUN) 16 mg/dL (9-23)
[2017-07-29 02:50] LABS: AST (GOT) 10 IU/L (2-34)
[2017-07-29 02:51] LABS: ALT (GPT) 6 IU/L (3-49)
[2017-07-29 02:52] LABS: LIPASE 21 U/L (1.0-51.0)
[2017-07-29] MEDS ORDERED: ATARAX,VISTARIL25 MG PO (03:24)
[2017-07-29] MEDS ORDERED: PERCOCET 5/31 TABLET PO (03:24)
[2017-07-29 04:10] VITALS: BP 135/70
== END 2017-07-29 04:10 | disposition home or self-care (01) ==
LOC: EME 00:48
PROVIDERS: Emergency Medicine
DX: L03.116 Cellulitis of left lower limb (principal); E87.6 Hypokalemia; Z88.8 Allergy status to other drugs, medicaments and biological substances; Z88.2 Allergy status to sulfonamides
CPT/HCPCS: 80053; 83690; 85027; Q0177

== ENCOUNTER 2017-08-04 16:01 | Emergency (ER) | payer OTHER ==
[~2017-08-04] VITALS: Ht 177.8 cm; Wt 148.6 kg
[2017-08-04 20:50] VITALS: BP 122/74
== END 2017-08-04 20:51 | disposition home or self-care (01) ==
LOC: EME 16:01
DX: L97.929 Non-pressure chronic ulcer of unspecified part of left lower leg with unspecified severity (principal); Z48.00 Encounter for change or removal of nonsurgical wound dressing; I11.0 Hypertensive heart disease with heart failure; I50.9 Heart failure, unspecified; E78.5 Hyperlipidemia, unspecified; E11.9 Type 2 diabetes mellitus without complications; J44.9 Chronic obstructive pulmonary disease, unspecified; I25.2 Old myocardial infarction; F17.200 Nicotine dependence, unspecified, uncomplicated; Z79.01 Long term (current) use of anticoagulants; Z79.4 Long term (current) use of insulin; Z87.2 Personal history of diseases of the skin and subcutaneous tissue; Z95.1 Presence of aortocoronary bypass graft; Z88.2 Allergy status to sulfonamides; Z88.1 Allergy status to other antibiotic agents
CPT/HCPCS: 99281; 99284

== ENCOUNTER 2017-10-10 21:55 | Emergency (ER) | payer OTHER ==
[~2017-10-10] VITALS: Ht 177.8 cm; Wt 146.5 kg
[2017-10-11] MEDS ORDERED: ULTRACET1 TABLET PO (00:45)
[2017-10-11 01:19] VITALS: BP 135/75
[2017-10-11] MEDS ORDERED: MOTRIN800 MG PO (11:35)
== END 2017-10-11 01:20 | disposition home or self-care (01) ==
LOC: EME 21:55
DX: S70.01XA Contusion of right hip, initial encounter (principal); S70.11XA Contusion of right thigh, initial encounter; S86.911A Strain of unspecified muscle(s) and tendon(s) at lower leg level, right leg, initial encounter; S80.11XA Contusion of right lower leg, initial encounter; W06.XXXA Fall from bed, initial encounter; E66.01 Morbid (severe) obesity due to excess calories; Z68.42 Body mass index [BMI] 45.0-49.9, adult; Z88.2 Allergy status to sulfonamides; Z88.1 Allergy status to other antibiotic agents
CPT/HCPCS: 73502; 73552; 73590; 99281; 99283; J3010

== ENCOUNTER 2017-10-11 08:48 | Emergency (ER) | payer OTHER ==
[~2017-10-11] VITALS: Ht 167.6 cm; Wt 144.5 kg
[~2017-10-11 08:48] MED LIST changes: +ULTRACET1 TABLET PO
[2017-10-11] MEDS ORDERED: MOTRIN800 MG PO (11:35)
[2017-10-11 11:51] VITALS: BP 93/45
== END 2017-10-11 12:11 | disposition home or self-care (01) ==
LOC: EME 08:48
DX: S43.402A Unspecified sprain of left shoulder joint, initial encounter (principal); W05.0XXA Fall from non-moving wheelchair, initial encounter; E78.5 Hyperlipidemia, unspecified; E11.9 Type 2 diabetes mellitus without complications; Z79.4 Long term (current) use of insulin; I25.2 Old myocardial infarction; I11.0 Hypertensive heart disease with heart failure; I50.9 Heart failure, unspecified; J44.9 Chronic obstructive pulmonary disease, unspecified; F17.200 Nicotine dependence, unspecified, uncomplicated; Z95.1 Presence of aortocoronary bypass graft; Z88.2 Allergy status to sulfonamides
CPT/HCPCS: 73030; 99281; 99284; J1885

== ENCOUNTER 2017-10-28 21:46 | Inpatient (IN) | payer OTHER ==
[~2017-10-28] VITALS: Ht 177 cm; Wt 140.9 kg
[~2017-10-28 21:46] MED LIST changes: -ADVAIR 500/501 DISK IH; +MOTRIN800 MG PO; +PROVENTIL HFA6.7 GM IH
[2017-10-28 22:24] LABS: HEMATOCRIT 34.1 % (36.0-46.0); HEMOGLOBIN 11.3 G/DL (11.9-15.5); MCH 26.8 PG (29.0-34.0); MCHC 33.1 G/DL (30.0-36.0); PLATELET COUNT 274 K/uL (156-360); RBC DIS.WIDTH-CV 17.7 % (11.8-14.6); RBC DIS.WIDTH-SD 51.5 % (39-53); RED BLOOD COUNT 4.21 M/uL (3.80-5.20); WHITE BLOOD COUNT 12.9 K/uL (4.1-10.2)
[2017-10-28 22:34] LABS: CHLORIDE 100 mEq/L (99-109); SODIUM 139 mEq/L (136-147)
[2017-10-28 22:37] LABS: GLUCOSE 185 mg/dL (70-99)
[2017-10-28 22:39] LABS: GFR ESTIMATE (CALCULATED) 58 mL/min/
[2017-10-28 22:40] LABS: UREA NITROGEN (BUN) 12 mg/dL (9-23)
[2017-10-28 22:47] LABS: CARBON DIOXIDE (BICARBONATE) 33.9 MEQ/L (20-31)
[2017-10-28 22:47] LABS: TROP-I INTERPRETATION NEGATIVE; TROPONIN-I 0.03 ng/mL (0.0-0.30)
[2017-10-28 22:54] LABS: ALBUMIN 3.6 g/dL (3.2-4.8)
[2017-10-28 22:57] LABS: TOTAL PROTEIN 7.3 g/dL (6.4-8.3)
[2017-10-28 22:58] LABS: TOTAL BILIRUBIN 0.7 mg/dL (0.0-1.0)
[2017-10-28 23:02] LABS: AST (GOT) 9 IU/L (2-34); DIRECT BILIRUBIN 0.4 mg/dL (0.0-0.3)
[2017-10-28 23:03] LABS: ALT (GPT) 5 IU/L (3-49); LIPASE 19 U/L (1.0-51.0)
[2017-10-28 23:10] LABS: ALKALINE PHOSPHATASE 82 IU/L (3-129)
[2017-10-28 23:11] LABS: PHOSPHORUS 3.4 mg/dL (2.5-4.9)
[2017-10-28 23:25] LABS: INTER. NORMALIZED RATIO 1.8
[2017-10-28 23:27] LABS: PTT 36.5 SEC (25-37)
[2017-10-29 03:35] LABS: TROP-I INTERPRETATION NEGATIVE; TROPONIN-I 0.03 ng/mL (0.0-0.30)
[2017-10-29 04:00] VITALS: BP 126/76
[2017-10-29 07:30] VITALS: BP 122/74
[2017-10-29 09:20] LABS: HEMATOCRIT 37.2 % (36.0-46.0); HEMOGLOBIN 11.8 G/DL (11.9-15.5); MCH 26.3 PG (29.0-34.0); MCHC 31.7 G/DL (30.0-36.0); PLATELET COUNT 256 K/uL (156-360); RBC DIS.WIDTH-SD 53.8 % (39-53); RED BLOOD COUNT 4.48 M/uL (3.80-5.20); WHITE BLOOD COUNT 11.9 K/uL (4.1-10.2)
[2017-10-29 09:47] LABS: TROP-I INTERPRETATION NEGATIVE; TROPONIN-I 0.03 ng/mL (0.0-0.30)
[2017-10-29 09:51] LABS: CHLORIDE 100 MEQ/L (99-109); CREATININE 0.9 MG/DL (0.6-1.3); GFR ESTIMATE (CALCULATED) > 59 mL/min/; GLUCOSE 206 mg/dL (70-99); SODIUM 136 MEQ/L (136-147); UREA NITROGEN (BUN) 13 mg/dL (9-23)
[2017-10-29 10:22] LABS: POTASSIUM 3.7 MEQ/L (3.7-5.4)
[2017-10-29 11:37] VITALS: BP 113/54
[2017-10-29 11:49] VITALS: BP 151/75
[2017-10-29] MEDS ORDERED: MOTRIN800 MG PO (12:12)
[2017-10-29 17:38] VITALS: BP 151/92
[2017-10-29 19:39] VITALS: BP 142/76
[2017-10-30] VITALS (7 sets, daily range): BP systolic 117–141; BP diastolic 56–87
[2017-10-30 05:38] LABS: CHLORIDE 93 MEQ/L (99-109); CREATININE 1.2 MG/DL (0.6-1.3); GFR ESTIMATE (CALCULATED) 47 mL/min/; GLUCOSE 292 mg/dL (70-99); POTASSIUM 3.5 MEQ/L (3.7-5.4); SODIUM 134 MEQ/L (136-147)
[2017-10-30 05:40] LABS: UREA NITROGEN (BUN) 22 mg/dL (9-23)
[2017-10-31 04:00] VITALS: BP 117/59
[2017-10-31 07:51] VITALS: BP 123/68
[2017-10-31 10:36] LABS: CHLORIDE 95 MEQ/L (99-109); CREATININE 1.1 MG/DL (0.6-1.3); GFR ESTIMATE (CALCULATED) 52 mL/min/; GLUCOSE 278 mg/dL (70-99); POTASSIUM 3.9 MEQ/L (3.7-5.4); SODIUM 133 MEQ/L (136-147)
[2017-10-31 10:37] LABS: UREA NITROGEN (BUN) 34 mg/dL (9-23)
[2017-10-31 11:41] VITALS: BP 123/57
[2017-10-31] MEDS ORDERED: BRILINTA90 MG PO (13:58)
[2017-10-31] MEDS ORDERED: AMOX TR-K CLV1 EAC4 PO (13:58)
[2017-10-31] MEDS ORDERED: GABAPENTIN100 MG PO (14:01)
[2017-10-31] MEDS ORDERED: FUROSEMIDE40 MG PO (14:01)
[2017-10-31] MEDS ORDERED: PREDNISONE10 MG PO (14:04)
[2017-10-31] MEDS ORDERED: SANTYL30 GM TP (14:04)
[2017-10-31] MEDS ORDERED: BACTROBAN OINTM22 GM TP (14:04)
[2017-10-31] MEDS ORDERED: ULTRACET1 TABLET PO (14:05)
[2017-10-31] MEDS ORDERED: ADULT FOLDING1 EACH MC (14:06)
[2017-10-31] MEDS ORDERED: KLOR-CON SPRIN10 MEQ PO (14:13)
[2017-10-31 17:39] VITALS: BP 136/60
== END 2017-10-31 18:58 | disposition home health service (06) | DRG 292 ==
LOC: EME 21:46 → 4EAST 10-29 00:33 → EDOF 10-29 00:33 → ENRESERV 10-29 00:35 → 4EAST 10-29 03:22 → ENRESERV 10-31 13:34 → CANRESERV 10-31 13:38 → ENRESERV 10-31 13:38 → 4EAST 10-31 18:58
PROVIDERS: Emergency Medicine; Hospitalist; Physician Assistant Medical
PROC: 0HDLXZZ Extraction of Left Lower Leg Skin, External Approach (ICD-10-PCS; principal; 2017-10-29)
DX: I11.0 Hypertensive heart disease with heart failure (principal); I50.23 Acute on chronic systolic (congestive) heart failure; J44.1 Chronic obstructive pulmonary disease with (acute) exacerbation; I47.2 Ventricular tachycardia; E87.6 Hypokalemia; D64.9 Anemia, unspecified; E78.5 Hyperlipidemia, unspecified; E11.51 Type 2 diabetes mellitus with diabetic peripheral angiopathy without gangrene; I87.2 Venous insufficiency (chronic) (peripheral); L97.821 Non-pressure chronic ulcer of other part of left lower leg limited to breakdown of skin; L97.811 Non-pressure chronic ulcer of other part of right lower leg limited to breakdown of skin; I89.0 Lymphedema, not elsewhere classified; I25.10 Atherosclerotic heart disease of native coronary artery without angina pectoris; F17.210 Nicotine dependence, cigarettes, uncomplicated; I48.2 Chronic atrial fibrillation; I49.3 Ventricular premature depolarization; S51.812A Laceration without foreign body of left forearm, initial encounter; S41.111A Laceration without foreign body of right upper arm, initial encounter; S21.111A Laceration without foreign body of right front wall of thorax without penetration into thoracic cavity, initial encounter; Y33.XXXA Other specified events, undetermined intent, initial encounter; Y93.84 Activity, sleeping; E66.01 Morbid (severe) obesity due to excess calories; I25.2 Old myocardial infarction; Z95.1 Presence of aortocoronary bypass graft; Z95.5 Presence of coronary angioplasty implant and graft; Z68.42 Body mass index [BMI] 45.0-49.9, adult; Z79.01 Long term (current) use of anticoagulants; Z79.4 Long term (current) use of insulin; Z88.2 Allergy status to sulfonamides; Z88.1 Allergy status to other antibiotic agents
CPT/HCPCS: 71046; 80048; 80076; 82803; 82948; 83605; 83690; 83735; 83880; 84100; 84484; 85027; 85610; 85730; 87040; 93005; 93306; 93970; 94640; 94640 76; 97530 GO; 99202; 99281; 99285; J1815; J1940; J2930; J3480; J7030; J7512

== ENCOUNTER 2017-11-21 16:38 | Emergency (ER) | payer OTHER ==
[~2017-11-21] VITALS: Ht 177.8 cm; Wt 136.4 kg
[~2017-11-21 16:38] MED LIST changes: +ADULT FOLDING1 EACH MC; +AMOX TR-K CLV1 EAC4 PO; +BACTROBAN OINTM22 GM TP; +KLOR-CON SPRIN10 MEQ PO; +SANTYL30 GM TP
[2017-11-21 17:37] LABS: HEMATOCRIT 39.4 % (36.0-46.0); MCH 27.3 PG (29.0-34.0); MCV 82.6 FL (83-99); PLATELET COUNT 255 K/uL (156-360); RBC DIS.WIDTH-CV 17.1 % (11.8-14.6); RBC DIS.WIDTH-SD 50.5 % (39-53); RED BLOOD COUNT 4.77 M/uL (3.80-5.20); WHITE BLOOD COUNT 20.9 K/uL (4.1-10.2)
[2017-11-21 17:41] LABS: CARBON DIOXIDE (BICARBONATE) 39.6 MEQ/L (20-31)
[2017-11-21 17:45] LABS: ALBUMIN 3.9 g/dL (3.2-4.8); CHLORIDE 95 mEq/L (99-109); POTASSIUM 4.2 mEq/L (3.7-5.4); SODIUM 141 mEq/L (136-147)
[2017-11-21 17:47] LABS: GLUCOSE 157 mg/dL (70-99); TOTAL PROTEIN 7.5 g/dL (6.4-8.3)
[2017-11-21 17:49] LABS: TOTAL BILIRUBIN 0.5 mg/dL (0.0-1.0)
[2017-11-21 17:51] LABS: ALKALINE PHOSPHATASE 90 IU/L (3-129); CREATININE 1.2 mg/dL (0.6-1.3); GFR ESTIMATE (CALCULATED) 47 mL/min/
[2017-11-21 17:52] LABS: UREA NITROGEN (BUN) 30 mg/dL (9-23)
[2017-11-21 17:53] LABS: AST (GOT) 10 IU/L (2-34)
[2017-11-21 17:54] LABS: ALT (GPT) 11 IU/L (3-49); LIPASE 23 U/L (1.0-51.0)
[2017-11-21 19:38] LABS: APPEARANCE CLEAR ((CLEAR)); BILIRUBIN NEGATIVE; BLOOD NEGATIVE; COLOR STRAW ((YELLOW)); GLUCOSE (STRIP) NEGATIVE; KETONES NEGATIVE; LEUKOCYTES NEGATIVE; NITRITE NEGATIVE; PROTEIN (STRIP) NEGATIVE; SPECIFIC GRAVITY 1.011 (1.000-1.030); UCUL ADDED? NO; UROBILINOGEN 0.2 MG/DL (0.2-1.0)
[2017-11-21] MEDS ORDERED: ZOFRAN4 MG PO (20:12)
[2017-11-21 21:27] VITALS: BP 120/64
== END 2017-11-21 21:29 | disposition home or self-care (01) ==
LOC: EME 16:38
PROVIDERS: Physician Assistant
DX: E11.65 Type 2 diabetes mellitus with hyperglycemia (principal); Z79.4 Long term (current) use of insulin; J44.9 Chronic obstructive pulmonary disease, unspecified; I11.0 Hypertensive heart disease with heart failure; I50.9 Heart failure, unspecified; I25.2 Old myocardial infarction; E78.5 Hyperlipidemia, unspecified; Z95.1 Presence of aortocoronary bypass graft; Z88.2 Allergy status to sulfonamides; F17.200 Nicotine dependence, unspecified, uncomplicated
CPT/HCPCS: 80053; 81003; 82803; 82948; 83690; 85027; 99281; 99284; J2405; J7030

== ENCOUNTER 2017-12-14 07:06 | Emergency (ER) | payer OTHER ==
[~2017-12-14] VITALS: Ht 177.8 cm; Wt 138.2 kg
[2017-12-14 08:16] LABS: HEMATOCRIT 35.6 % (36.0-46.0); HEMOGLOBIN 11.9 G/DL (11.9-15.5); MCH 28.1 PG (29.0-34.0); MCHC 33.4 G/DL (30.0-36.0); PLATELET COUNT 291 K/uL (156-360); RBC DIS.WIDTH-CV 17.4 % (11.8-14.6); RBC DIS.WIDTH-SD 53.1 % (39-53); RED BLOOD COUNT 4.24 M/uL (3.80-5.20); WHITE BLOOD COUNT 14.4 K/uL (4.1-10.2)
[2017-12-14 08:23] LABS: INTER. NORMALIZED RATIO 1.9
[2017-12-14 08:26] LABS: PTT 34.3 SEC (25-37)
[2017-12-14 08:29] LABS: CHLORIDE 96 mEq/L (99-109); POTASSIUM 2.7 mEq/L (3.7-5.4); SODIUM 139 mEq/L (136-147)
[2017-12-14 08:31] LABS: GLUCOSE 167 mg/dL (70-99)
[2017-12-14 08:35] LABS: CREATININE 1.1 mg/dL (0.6-1.3); GFR ESTIMATE (CALCULATED) 52 mL/min/
[2017-12-14 08:36] LABS: UREA NITROGEN (BUN) 23 mg/dL (9-23)
[2017-12-14 09:31] VITALS: BP 118/65
== END 2017-12-14 09:30 | disposition home or self-care (01) ==
LOC: EME 07:06
PROVIDERS: Nurse Practitioner Family
DX: S80.812A Abrasion, left lower leg, initial encounter (principal); I83.009 Varicose veins of unspecified lower extremity with ulcer of unspecified site; L97.909 Non-pressure chronic ulcer of unspecified part of unspecified lower leg with unspecified severity; E87.6 Hypokalemia; W22.8XXA Striking against or struck by other objects, initial encounter; I10 Essential (primary) hypertension; I48.91 Unspecified atrial fibrillation; J44.9 Chronic obstructive pulmonary disease, unspecified; I25.2 Old myocardial infarction; E78.5 Hyperlipidemia, unspecified; E11.9 Type 2 diabetes mellitus without complications; Z79.4 Long term (current) use of insulin; Z79.01 Long term (current) use of anticoagulants; Z95.1 Presence of aortocoronary bypass graft; F17.200 Nicotine dependence, unspecified, uncomplicated; Z88.2 Allergy status to sulfonamides
CPT/HCPCS: 80048; 85027; 85610; 85730; 93005; 99281; 99285

== ENCOUNTER 2017-12-29 21:20 | Observation (INO) | payer OTHER ==
[~2017-12-29] VITALS: Ht 177.8 cm; Wt 142.9 kg
[2017-12-29 22:48] LABS: HEMATOCRIT 35.6 % (36.0-46.0); MCH 29.1 PG (29.0-34.0); MCHC 33.7 G/DL (30.0-36.0); MCV 86.2 FL (83-99); PLATELET COUNT 309 K/uL (156-360); RBC DIS.WIDTH-CV 17.4 % (11.8-14.6); RBC DIS.WIDTH-SD 54.9 % (39-53); RED BLOOD COUNT 4.13 M/uL (3.80-5.20); WHITE BLOOD COUNT 15.1 K/uL (4.1-10.2)
[2017-12-29 22:57] LABS: ALBUMIN 3.8 g/dL (3.2-4.8)
[2017-12-29 22:58] LABS: CHLORIDE 96 mEq/L (99-109); POTASSIUM 2.6 mEq/L (3.7-5.4); SODIUM 137 mEq/L (136-147)
[2017-12-29 23:00] LABS: GLUCOSE 232 mg/dL (70-99); TOTAL PROTEIN 7.3 g/dL (6.4-8.3)
[2017-12-29 23:02] LABS: TOTAL BILIRUBIN 0.9 mg/dL (0.0-1.0)
[2017-12-29 23:03] LABS: ALKALINE PHOSPHATASE 74 IU/L (3-129)
[2017-12-29 23:04] LABS: CREATININE 1.4 mg/dL (0.6-1.3); GFR ESTIMATE (CALCULATED) 40 mL/min/
[2017-12-29 23:05] LABS: AST (GOT) 13 IU/L (2-34); UREA NITROGEN (BUN) 21 mg/dL (9-23)
[2017-12-29 23:06] LABS: ALT (GPT) 8 IU/L (3-49)
[2017-12-29 23:07] LABS: CREATINE KINASE 51 IU/L (1-294)
[2017-12-30 02:12] LABS: APPEARANCE CLEAR ((CLEAR)); BILIRUBIN NEGATIVE; BLOOD NEGATIVE; COLOR YELLOW ((YELLOW)); GLUCOSE (STRIP) NEGATIVE; KETONES NEGATIVE; LEUKOCYTES SMALL; NITRITE NEGATIVE; PROTEIN (STRIP) NEGATIVE; SPECIFIC GRAVITY 1.014 (1.000-1.030)
[2017-12-30 02:17] LABS: BACTERIA RARE /HPF; EPITHELIAL CELLS 1+ /HPF; MUCUS TRACE /LPF; RED BLOOD CELLS 0-5 /HPF (0-5); UCUL ADDED? NO; WHITE BLOOD CELLS 0-5 /HPF (0-5)
[2017-12-30 02:43] LABS: CHLORIDE 98 mEq/L (99-109); POTASSIUM 2.8 mEq/L (3.7-5.4); SODIUM 137 mEq/L (136-147)
[2017-12-30 02:45] LABS: GLUCOSE 137 mg/dL (70-99)
[2017-12-30 02:49] LABS: CREATININE 1.2 mg/dL (0.6-1.3); GFR ESTIMATE (CALCULATED) 47 mL/min/
[2017-12-30 02:50] LABS: UREA NITROGEN (BUN) 20 mg/dL (9-23)
[2017-12-30 05:19] VITALS: BP 118/58
[2017-12-30] MEDS ORDERED: LOPRESSOR25 MG PO (05:51)
[2017-12-30] MEDS ORDERED: KLOR-CON SPRIN10 MEQ PO (05:52)
[2017-12-30 08:34] VITALS: BP 108/56
[2017-12-30 10:16] LABS: HEMATOCRIT 35.1 % (36.0-46.0); HEMOGLOBIN 11.3 G/DL (11.9-15.5); MCHC 32.2 G/DL (30.0-36.0); MCV 86.9 FL (83-99); PLATELET COUNT 296 K/uL (156-360); RBC DIS.WIDTH-CV 17.6 % (11.8-14.6); RBC DIS.WIDTH-SD 55.9 % (39-53); RED BLOOD COUNT 4.04 M/uL (3.80-5.20); WHITE BLOOD COUNT 13.8 K/uL (4.1-10.2)
[2017-12-30 10:44] LABS: CHLORIDE 100 MEQ/L (99-109); CREATININE 1.1 MG/DL (0.6-1.3); GFR ESTIMATE (CALCULATED) 52 mL/min/; GLUCOSE 148 mg/dL (70-99); SODIUM 141 MEQ/L (136-147); UREA NITROGEN (BUN) 18 mg/dL (9-23)
[2017-12-30 10:46] LABS: POTASSIUM 3.9 MEQ/L (3.7-5.4)
[2017-12-30] MEDS ORDERED: K-DUR20 MEQ PO (11:14)
[2017-12-30 11:40] VITALS: BP 110/51
[2017-12-30] MEDS ORDERED: AUGMENTIN875 MG PO (12:50)
== END 2017-12-30 14:58 | disposition home or self-care (01) ==
LOC: EME 21:20 → EXP 21:20 → EDOF 12-30 03:39 → ENRESERV 12-30 03:41 → 4SOUTH 12-30 04:58
PROVIDERS: Hospitalist; Physician Assistant
DX: E87.6 Hypokalemia (principal); D72.829 Elevated white blood cell count, unspecified; E86.0 Dehydration; J44.9 Chronic obstructive pulmonary disease, unspecified; I11.0 Hypertensive heart disease with heart failure; I50.9 Heart failure, unspecified; E11.51 Type 2 diabetes mellitus with diabetic peripheral angiopathy without gangrene; E78.5 Hyperlipidemia, unspecified; I48.91 Unspecified atrial fibrillation; I25.10 Atherosclerotic heart disease of native coronary artery without angina pectoris; Z79.01 Long term (current) use of anticoagulants; I87.8 Other specified disorders of veins; L97.822 Non-pressure chronic ulcer of other part of left lower leg with fat layer exposed; D64.9 Anemia, unspecified; S91.002A Unspecified open wound, left ankle, initial encounter; Z95.1 Presence of aortocoronary bypass graft; Z95.5 Presence of coronary angioplasty implant and graft; F17.210 Nicotine dependence, cigarettes, uncomplicated; Z80.0 Family history of malignant neoplasm of digestive organs; Z88.2 Allergy status to sulfonamides; Z88.1 Allergy status to other antibiotic agents; Z91.048 Other nonmedicinal substance allergy status
CPT/HCPCS: 71046; 80048; 80048 91; 80053; 81003; 82550; 82948; 83735; 84145 90; 85027; 87641; 93005; 99281; 99285; G0378; J1815; J2405; J3480; J7030

== ENCOUNTER 2018-01-14 12:38 | Inpatient (IN) | payer OTHER ==
[~2018-01-14] VITALS: Ht 177.8 cm; Wt 150.0 kg
[~2018-01-14 12:38] MED LIST changes: +AUGMENTIN875 MG PO; +TOPROL XL25 MG PO
[2018-01-14 13:54] LABS: BASOPHIL (%) 0.4 % (0-1); EOSINOPHIL (%) 0.8 % (0-5); EOSINOPHIL COUNT 0.1 K/uL (0-0.3); HEMATOCRIT 32.9 % (36.0-46.0); HEMOGLOBIN 10.9 G/DL (11.9-15.5); IMMATURE GRANULOCYTE (%) 0.7 % (0.0-0.7); LYMPHOCYTE (%) 7.7 % (15-42); LYMPHOCYTE COUNT 0.8 K/uL (1.0-2.8); MCH 29.1 PG (29.0-34.0); MCHC 33.1 G/DL (30.0-36.0); MCV 87.7 FL (83-99); MONOCYTE (%) 6.4 % (3-12); MONOCYTE COUNT 0.7 K/uL (0-0.8); NEUTROPHIL COUNT 8.7 K/uL (1.8-6.4); PLATELET COUNT 254 K/uL (156-360); RBC DIS.WIDTH-CV 16.9 % (11.8-14.6); RBC DIS.WIDTH-SD 54.3 % (39-53); RED BLOOD COUNT 3.75 M/uL (3.80-5.20); WHITE BLOOD COUNT 10.4 K/uL (4.1-10.2)
[2018-01-14 14:14] LABS: ALBUMIN 3.8 g/dL (3.2-4.8); CHLORIDE 100 mEq/L (99-109); POTASSIUM 3.5 mEq/L (3.7-5.4); SODIUM 143 mEq/L (136-147)
[2018-01-14 14:16] LABS: GLUCOSE 89 mg/dL (70-99); TROP-I INTERPRETATION NEGATIVE; TROPONIN-I 0.01 ng/mL (0.0-0.30)
[2018-01-14 14:17] LABS: TOTAL PROTEIN 7.4 g/dL (6.4-8.3)
[2018-01-14 14:18] LABS: TOTAL BILIRUBIN 0.9 mg/dL (0.0-1.0)
[2018-01-14 14:20] LABS: ALKALINE PHOSPHATASE 72 IU/L (3-129); GFR ESTIMATE (CALCULATED) 58 mL/min/
[2018-01-14 14:21] LABS: UREA NITROGEN (BUN) 15 mg/dL (9-23)
[2018-01-14 14:22] LABS: AST (GOT) 10 IU/L (2-34)
[2018-01-14 14:23] LABS: ALT (GPT) 5 IU/L (3-49)
[2018-01-14 14:24] LABS: LIPASE 5 U/L (1.0-51.0)
[2018-01-14] MEDS ORDERED: LASIX20 MG PO (16:11)
[2018-01-14] MEDS ORDERED: BACTROBAN OINTM22 GM TP (16:14)
[2018-01-14] MEDS ORDERED: K-DUR20 MEQ PO (16:15)
[2018-01-14] MEDS ORDERED: ADVIL100 MG PO (16:16)
[2018-01-14] MEDS ORDERED: TYLENOL325 M2 PO (16:16)
[2018-01-14] MEDS ORDERED: ULTRACET1 TABLET PO (16:16)
[2018-01-14] MEDS ORDERED: METOLAZONE5 MG PO (16:17)
[2018-01-14] MEDS ORDERED: NOVOLOG 10100 UNITS/ SC (16:17)
[2018-01-14] MEDS ORDERED: TRENTAL400 MG PO (16:18)
[2018-01-14] MEDS ORDERED: [UNRECOGNIZED DRUG - OTHER] (16:42)
[2018-01-14 17:35] VITALS: BP 139/63
[2018-01-14 19:14] VITALS: BP 118/57
[2018-01-14 23:29] VITALS: BP 119/56
[2018-01-15 01:24] LABS: TROP-I INTERPRETATION NEGATIVE; TROPONIN-I 0.03 ng/mL (0.0-0.30)
[2018-01-15 03:37] VITALS: BP 134/66
[2018-01-15 05:19] LABS: HEMOGLOBIN 10.2 G/DL (11.9-15.5); MCH 28.5 PG (29.0-34.0); MCHC 31.9 G/DL (30.0-36.0); MCV 89.4 FL (83-99); PLATELET COUNT 266 K/uL (156-360); RBC DIS.WIDTH-CV 16.7 % (11.8-14.6); RBC DIS.WIDTH-SD 54.2 % (39-53); RED BLOOD COUNT 3.58 M/uL (3.80-5.20); WHITE BLOOD COUNT 11.7 K/uL (4.1-10.2)
[2018-01-15 05:34] LABS: TROP-I INTERPRETATION NEGATIVE; TROPONIN-I 0.02 ng/mL (0.0-0.30)
[2018-01-15 05:44] LABS: CHLORIDE 97 MEQ/L (99-109); CREATININE 0.6 MG/DL (0.6-1.3); GFR ESTIMATE (CALCULATED) > 59 mL/min/; GLUCOSE 131 mg/dL (70-99); SODIUM 138 MEQ/L (136-147); UREA NITROGEN (BUN) 17 mg/dL (9-23)
[2018-01-15 08:39] VITALS: BP 134/67
[2018-01-15 10:08] LABS: MAGNESIUM 1.7 mg/dl (1.3-2.7)
[2018-01-15 12:12] VITALS: BP 111/59
[2018-01-15 12:25] LABS: APPEARANCE CLEAR ((CLEAR)); BILIRUBIN NEGATIVE; BLOOD NEGATIVE; COLOR YELLOW ((YELLOW)); GLUCOSE (STRIP) NEGATIVE; KETONES NEGATIVE; LEUKOCYTES NEGATIVE; NITRITE NEGATIVE; PROTEIN (STRIP) NEGATIVE; SPECIFIC GRAVITY 1.011 (1.000-1.030); UCUL ADDED? NO; UROBILINOGEN 0.2 MG/DL (0.2-1.0)
[2018-01-15 15:50] VITALS: BP 112/56
[2018-01-15 20:10] VITALS: BP 110/59
[2018-01-16 00:43] VITALS: BP 122/56
[2018-01-16 04:26] VITALS: BP 106/53
[2018-01-16 06:06] LABS: BASOPHIL (%) 0.6 % (0-1); BASOPHIL COUNT 0.1 K/uL (0-0.1); EOSINOPHIL (%) 4.5 % (0-5); EOSINOPHIL COUNT 0.4 K/uL (0-0.3); HEMOGLOBIN 9.9 G/DL (11.9-15.5); IMMATURE GRANULOCYTE (%) 0.5 % (0.0-0.7); LYMPHOCYTE (%) 13.2 % (15-42); LYMPHOCYTE COUNT 1.3 K/uL (1.0-2.8); MCH 28.7 PG (29.0-34.0); MCHC 31.9 G/DL (30.0-36.0); MCV 89.9 FL (83-99); MONOCYTE (%) 7.9 % (3-12); MONOCYTE COUNT 0.8 K/uL (0-0.8); NEUTROPHIL (%) 73.3 % (45-76); NEUTROPHIL COUNT 7.1 K/uL (1.8-6.4); RBC DIS.WIDTH-CV 17.2 % (11.8-14.6); RBC DIS.WIDTH-SD 55.8 % (39-53); RED BLOOD COUNT 3.45 M/uL (3.80-5.20); WHITE BLOOD COUNT 9.7 K/uL (4.1-10.2)
[2018-01-16 06:24] LABS: ALBUMIN 3.3 G/DL (3.2-4.8); ALKALINE PHOSPHATASE 64 IU/L (3-129); ALT (GPT) 5 IU/L (3-49); AST (GOT) 14 IU/L (2-34); CHLORIDE 98 MEQ/L (99-109); GFR ESTIMATE (CALCULATED) 58 mL/min/; GLUCOSE 145 mg/dL (70-99); SODIUM 135 MEQ/L (136-147); TOTAL BILIRUBIN 0.5 MG/DL (0.0-1.0); TOTAL PROTEIN 6.2 G/DL (6.4-8.3); UREA NITROGEN (BUN) 19 mg/dL (9-23)
[2018-01-16 06:42] LABS: POTASSIUM 3.8 MEQ/L (3.7-5.4)
[2018-01-16 06:43] LABS: HEMATOLOGY COMMENT 1 SN; PLAT.SUFFICIENCY ADEQUATE; PLATELET COUNT 250 K/uL (156-360)
[2018-01-16 06:54] VITALS: BP 110/51
== END 2018-01-16 12:57 | disposition home or self-care (01) | DRG 309 ==
LOC: EME 12:38 → 4EAST 15:34 → EDOF 15:34 → ENRESERV 15:41 → 4EAST 17:02
PROVIDERS: Emergency Medicine; Hospitalist
DX: R00.1 Bradycardia, unspecified (principal); R00.8 Other abnormalities of heart beat; T44.7X5A Adverse effect of beta-adrenoreceptor antagonists, initial encounter; K29.70 Gastritis, unspecified, without bleeding; I42.9 Cardiomyopathy, unspecified; I48.2 Chronic atrial fibrillation; E87.6 Hypokalemia; I11.0 Hypertensive heart disease with heart failure; I50.22 Chronic systolic (congestive) heart failure; L03.115 Cellulitis of right lower limb; L03.116 Cellulitis of left lower limb; I87.8 Other specified disorders of veins; L97.919 Non-pressure chronic ulcer of unspecified part of right lower leg with unspecified severity; L97.929 Non-pressure chronic ulcer of unspecified part of left lower leg with unspecified severity; J44.9 Chronic obstructive pulmonary disease, unspecified; E03.9 Hypothyroidism, unspecified; E11.51 Type 2 diabetes mellitus with diabetic peripheral angiopathy without gangrene; I25.10 Atherosclerotic heart disease of native coronary artery without angina pectoris; I25.2 Old myocardial infarction; Z95.1 Presence of aortocoronary bypass graft; Z95.5 Presence of coronary angioplasty implant and graft; E78.5 Hyperlipidemia, unspecified; D64.9 Anemia, unspecified; R53.1 Weakness; F17.210 Nicotine dependence, cigarettes, uncomplicated
CPT/HCPCS: 71045; 80048; 80053; 81003; 82800; 82948; 83690; 83735; 83930; 84439; 84443; 84484; 85025; 85027; 93005; 94640; 94799; 99281; 99285; J2405; J7030; J7040; S0028

== ENCOUNTER 2018-02-22 19:46 | Inpatient (IN) | payer OTHER ==
[~2018-02-22] VITALS: Ht 177.8 cm; Wt 142.0 kg
[~2018-02-22 19:46] MED LIST changes: +ADVIL100 MG PO; +TRENTAL400 MG PO; +TYLENOL325 M2 PO; +[UNRECOGNIZED DRUG - OTHER]
[2018-02-22 20:51] LABS: HEMATOCRIT 33.1 % (36.0-46.0); HEMOGLOBIN 10.8 G/DL (11.9-15.5); MCH 28.5 PG (29.0-34.0); MCHC 32.6 G/DL (30.0-36.0); MCV 87.3 FL (83-99); PLATELET COUNT 296 K/uL (156-360); RBC DIS.WIDTH-CV 14.1 % (11.8-14.6); RED BLOOD COUNT 3.79 M/uL (3.80-5.20); WHITE BLOOD COUNT 15.1 K/uL (4.1-10.2)
[2018-02-22 21:04] LABS: CHLORIDE 97 mEq/L (99-109)
[2018-02-22 21:05] LABS: POTASSIUM 2.9 mEq/L (3.7-5.4); SODIUM 138 mEq/L (136-147)
[2018-02-22 21:06] LABS: GLUCOSE 192 mg/dL (70-99)
[2018-02-22 21:10] LABS: CREATININE 1.1 mg/dL (0.6-1.3); GFR ESTIMATE (CALCULATED) 52 mL/min/
[2018-02-22 21:11] LABS: UREA NITROGEN (BUN) 16 mg/dL (9-23)
[2018-02-22 21:13] LABS: TROP-I INTERPRETATION NEGATIVE; TROPONIN-I 0.03 ng/mL (0.0-0.30)
[2018-02-22 22:57] LABS: CARBOXY HGB 2.4 % (0-5); MODE RA; O2 SATURATION (CALCULATED) 96.4 % (95-99); PCO2 37 mm Hg (35-45); PO2 70 mm Hg (80-100); SITE LR; TOTAL RESP RATE 20 resp/min; pH 7.49 (7.35-7.45)
[2018-02-22 22:58] LABS: BASE EXCESS 4.7 mEq/L (-3 to +3); BICARBONATE 28.2 mEq/L (22-26)
[2018-02-22] MEDS ORDERED: NEURONTIN100 MG PO (23:24)
[2018-02-22] MEDS ORDERED: VENTOLIN HFA18 GM IH (23:39)
[2018-02-23 02:43] VITALS: BP 131/84
[2018-02-23 05:56] LABS: HEMATOCRIT 33.3 % (36.0-46.0); HEMOGLOBIN 10.8 G/DL (11.9-15.5); MCH 28.3 PG (29.0-34.0); MCHC 32.4 G/DL (30.0-36.0); MCV 87.4 FL (83-99); PLATELET COUNT 286 K/uL (156-360); RBC DIS.WIDTH-CV 14.3 % (11.8-14.6); RBC DIS.WIDTH-SD 45.9 % (39-53); RED BLOOD COUNT 3.81 M/uL (3.80-5.20); WHITE BLOOD COUNT 13.8 K/uL (4.1-10.2)
[2018-02-23 06:21] LABS: ALBUMIN 3.6 G/DL (3.2-4.8); ALKALINE PHOSPHATASE 68 IU/L (3-129); ALT (GPT) 7 IU/L (3-49); AST (GOT) 10 IU/L (2-34); CHLORIDE 93 MEQ/L (99-109); GFR ESTIMATE (CALCULATED) 58 mL/min/; SODIUM 135 MEQ/L (136-147); TOTAL BILIRUBIN 0.6 MG/DL (0.0-1.0); TOTAL PROTEIN 6.7 G/DL (6.4-8.3); UREA NITROGEN (BUN) 19 mg/dL (9-23)
[2018-02-23 06:27] LABS: GLUCOSE 441 mg/dL (70-99)
[2018-02-23 07:46] VITALS: BP 115/87
[2018-02-23 12:12] VITALS: BP 119/66
[2018-02-23 15:47] VITALS: BP 135/59
[2018-02-23 19:49] VITALS: BP 123/84
[2018-02-23 23:08] VITALS: BP 129/61
[2018-02-24 04:05] VITALS: BP 124/57
[2018-02-24 08:00] VITALS: BP 131/73
[2018-02-24 09:08] LABS: BASOPHIL (%) 0.1 % (0-1); EOSINOPHIL (%) 0 % (0-5); HEMATOCRIT 37.1 % (36.0-46.0); HEMOGLOBIN 11.8 G/DL (11.9-15.5); LYMPHOCYTE (%) 2.9 % (15-42); LYMPHOCYTE COUNT 0.7 K/uL (1.0-2.8); MCHC 31.8 G/DL (30.0-36.0); MCV 88.1 FL (83-99); MONOCYTE COUNT 0.5 K/uL (0-0.8); NEUTROPHIL COUNT 22.5 K/uL (1.8-6.4); PLATELET COUNT 341 K/uL (156-360); RBC DIS.WIDTH-CV 14.2 % (11.8-14.6); RBC DIS.WIDTH-SD 45.2 % (39-53); RED BLOOD COUNT 4.21 M/uL (3.80-5.20)
[2018-02-24 10:08] LABS: CHLORIDE 92 MEQ/L (99-109); GFR ESTIMATE (CALCULATED) 58 mL/min/; GLUCOSE 430 mg/dL (70-99); MAGNESIUM 2.1 mg/dl (1.3-2.7); POTASSIUM 3.8 MEQ/L (3.7-5.4); SODIUM 133 MEQ/L (136-147); UREA NITROGEN (BUN) 25 mg/dL (9-23)
[2018-02-24 13:07] VITALS: BP 130/68
[2018-02-24 16:20] VITALS: BP 132/70
[2018-02-24 19:15] VITALS: BP 136/75
[2018-02-25] VITALS (7 sets, daily range): BP systolic 120–140; BP diastolic 62–80
[2018-02-25 06:38] LABS: BASOPHIL (%) 0.1 % (0-1); EOSINOPHIL (%) 0 % (0-5); HEMATOCRIT 36.3 % (36.0-46.0); HEMOGLOBIN 11.9 G/DL (11.9-15.5); IMMATURE GRANULOCYTE (%) 1.2 % (0.0-0.7); LYMPHOCYTE (%) 3.8 % (15-42); MCH 28.8 PG (29.0-34.0); MCHC 32.8 G/DL (30.0-36.0); MCV 87.9 FL (83-99); NEUTROPHIL (%) 90.9 % (45-76); NEUTROPHIL COUNT 23.2 K/uL (1.8-6.4); PLATELET COUNT 334 K/uL (156-360); RBC DIS.WIDTH-CV 14.1 % (11.8-14.6); RBC DIS.WIDTH-SD 45.3 % (39-53); RED BLOOD COUNT 4.13 M/uL (3.80-5.20); WHITE BLOOD COUNT 25.5 K/uL (4.1-10.2)
[2018-02-25 06:57] LABS: CHLORIDE 97 MEQ/L (99-109); GFR ESTIMATE (CALCULATED) 58 mL/min/; GLUCOSE 302 mg/dL (70-99); POTASSIUM 3.9 MEQ/L (3.7-5.4); SODIUM 135 MEQ/L (136-147); UREA NITROGEN (BUN) 34 mg/dL (9-23)
[2018-02-26 03:35] VITALS: BP 125/68
[2018-02-26 07:32] VITALS: BP 142/79
[2018-02-26 09:50] LABS: BASOPHIL (%) 0.3 % (0-1); BASOPHIL COUNT 0.1 K/uL (0-0.1); EOSINOPHIL (%) 0.2 % (0-5); EOSINOPHIL COUNT 0.1 K/uL (0-0.3); HEMATOCRIT 40.9 % (36.0-46.0); HEMOGLOBIN 12.8 G/DL (11.9-15.5); LYMPHOCYTE (%) 11.6 % (15-42); LYMPHOCYTE COUNT 2.6 K/uL (1.0-2.8); MCH 27.8 PG (29.0-34.0); MCHC 31.3 G/DL (30.0-36.0); MCV 88.9 FL (83-99); MONOCYTE (%) 7.2 % (3-12); MONOCYTE COUNT 1.6 K/uL (0-0.8); NEUTROPHIL (%) 78.7 % (45-76); NEUTROPHIL COUNT 17.7 K/uL (1.8-6.4); PLATELET COUNT 383 K/uL (156-360); RBC DIS.WIDTH-CV 14.2 % (11.8-14.6); RBC DIS.WIDTH-SD 45.8 % (39-53); WHITE BLOOD COUNT 22.5 K/uL (4.1-10.2)
[2018-02-26 11:32] VITALS: BP 128/70
[2018-02-26] MEDS ORDERED: Robitussin DM PO (12:33)
[2018-02-26 15:22] VITALS: BP 130/70
[2018-02-26 20:11] VITALS: BP 136/79
[2018-02-26 20:12] VITALS: BP 136/79
[2018-02-27] VITALS: BP 138/67
[2018-02-27 04:03] VITALS: BP 163/90
[2018-02-27 07:57] VITALS: BP 182/69
[2018-02-27 08:05] VITALS: BP 155/78; BP 169/83
[2018-02-27 08:21] VITALS: BP 145/70
[2018-02-27] MEDS ORDERED: PREDNISONE20 MG PO (16:39)
== END 2018-02-27 10:39 | disposition home health service (06) | DRG 190 ==
LOC: EME 19:46 → EDOF 02-23 00:23 → ENRESERV 02-23 00:25 → 4SOUTH 02-23 02:21
PROVIDERS: Internal Medicine; Physician Assistant; Physician Assistant Medical
PROC: 0JDP3ZZ Extraction of Left Lower Leg Subcutaneous Tissue and Fascia, Percutaneous Approach (ICD-10-PCS; principal; 2018-02-23)
DX: J44.1 Chronic obstructive pulmonary disease with (acute) exacerbation (principal); J20.9 Acute bronchitis, unspecified; J96.01 Acute respiratory failure with hypoxia; J44.0 Chronic obstructive pulmonary disease with (acute) lower respiratory infection; E78.5 Hyperlipidemia, unspecified; E66.01 Morbid (severe) obesity due to excess calories; I25.10 Atherosclerotic heart disease of native coronary artery without angina pectoris; I11.0 Hypertensive heart disease with heart failure; I50.22 Chronic systolic (congestive) heart failure; I48.2 Chronic atrial fibrillation; D64.9 Anemia, unspecified; Z95.1 Presence of aortocoronary bypass graft; E11.65 Type 2 diabetes mellitus with hyperglycemia; E11.51 Type 2 diabetes mellitus with diabetic peripheral angiopathy without gangrene; I87.8 Other specified disorders of veins; I89.0 Lymphedema, not elsewhere classified; F17.210 Nicotine dependence, cigarettes, uncomplicated; L97.929 Non-pressure chronic ulcer of unspecified part of left lower leg with unspecified severity; L97.919 Non-pressure chronic ulcer of unspecified part of right lower leg with unspecified severity; E11.622 Type 2 diabetes mellitus with other skin ulcer; T38.0X5A Adverse effect of glucocorticoids and synthetic analogues, initial encounter; F41.9 Anxiety disorder, unspecified; K21.9 Gastro-esophageal reflux disease without esophagitis; I87.309 Chronic venous hypertension (idiopathic) without complications of unspecified lower extremity; E55.9 Vitamin D deficiency, unspecified; Y92.238 Other place in hospital as the place of occurrence of the external cause; I25.2 Old myocardial infarction; Z68.42 Body mass index [BMI] 45.0-49.9, adult; Z95.5 Presence of coronary angioplasty implant and graft; Z99.81 Dependence on supplemental oxygen; Z79.01 Long term (current) use of anticoagulants; Z79.4 Long term (current) use of insulin; Z82.3 Family history of stroke; Z80.0 Family history of malignant neoplasm of digestive organs
CPT/HCPCS: 36600; 71045; 71046; 80048; 80053; 82948; 83605; 83735; 83880; 84484; 84999; 85025; 85027; 87040; 87641; 93005; 94640; 94669; 94760; 94799; 99281; 99285; J0456; J1815; J2920; J2930; J3370; J3475; J7030; J7512